=== PATIENT | female | born 1970 | race Caucasian/White ===

== ENCOUNTER 2017-01-26 15:58 | Emergency (ER) | payer MEDICAID ==
[2017-01-26 15:58] VITALS: BMI 27.3
[2017-01-26 16:11] VITALS: TEMP 98.4
[2017-01-26 16:14] VITALS: RESP 18; O2SAT 99
[2017-01-26] MEDS ORDERED: Tetanus Immune Globulin 250 Units Inj IM ONE (16:38)
[2017-01-26] MEDS ORDERED: TDAP Vaccine 0.5 mL Syr IM ONE (16:53)
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
[2017-01-26 18:01] VITALS: BP 134/79; PULSE 89
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
== END 2017-01-26 18:35 | disposition home or self-care (01) ==
LOC: ED 15:58
DX: S09.92XA Unspecified injury of nose, initial encounter (principal); Y04.0XXA Assault by unarmed brawl or fight, initial encounter; Z23 Encounter for immunization

== ENCOUNTER 2017-12-23 10:45 | Emergency (ER) | payer MEDICAID, OTHER ==
[2017-12-23] MEDS ORDERED: Sodium Chloride 0.9% 1,000 ML IV STA (11:15)
[2017-12-23 11:46] LABS: BASO # 0.03 K/mm3 (0.0-2.0); BASO % 0.4 % (0.0-3.0); EOS # 0.3 (0.0-0.7); EOS % 3.9 % (1.5-5.0); GRAN # 5.21 (1.4-6.5); GRAN % 63.4 % (50.0-68.0); HEMOGLOBIN 14.8 g/dL (12.0-16.0); LYMPH # 2.2 (1.2-3.4); LYMPH % 26.9 % (22.0-35.0); MEAN CELL VOLUME 87.5 fl (80.0-105.0); MEAN CORPUSCULAR HEMOGLOBIN 30.3 pg (25.0-35.0); MEAN CORPUSCULAR HGB CONC 34.6 g/dl (31.0-37.0); MEAN PLATELET VOLUME 9.2 fl (7.0-11.0); MONO # 0.4 (0.1-0.6); MONO % 5.4 % (1.0-6.0); RBC 4.89 10^6/uL (3.5-6.1); RED CELL DISTRIBUTION WIDTH 13.1 % (11.5-14.5); URINE BILIRUBIN NEGATIVE (NEGATIVE); URINE BLOOD NEGATIVE (NEGATIVE); URINE GLUCOSE (UA) NEGATIVE (NEGATIVE); URINE LEUKOCYTE ESTERASE NEGATIVE Leu/uL (NEGATIVE); URINE PROTEIN TRACE mg/dL (<30 mg/dL); URINE UROBILINOGEN 0.2 E.U./dL (<1 E.U./dL); WHITE BLOOD COUNT 8.2 10^3/ul (4.5-11.0)
[2017-12-23 11:49] LABS: URINE APPEARANCE CLEAR (CLEAR); URINE COLOR YELLOW (YELLOW)
[2017-12-23 11:55] LABS: URINE AMORPHOUS SEDIMENT FEW; URINE BACTERIA MANY (NEG); URINE RBC 0 - 2 /hpf (0-2)
[2017-12-23 11:57] LABS: ALB/GLOB RATIO 1.1 (1.1-1.8); ALBUMIN 4.5 g/dL (3.0-4.8); CALCIUM 9.2 mg/dL (8.4-10.5); GFR AFRICAN-AMERICAN > 60; GFR NON-AFRICAN AMERICAN > 60
[2017-12-23 12:02] LABS: ALT/SGPT 27 U/L (7-56); AST/SGOT 32 U/L (14-36); BLOOD UREA NITROGEN 14 mg/dL (7-21)
[2017-12-23 12:08] LABS: TROPONIN I < 0.01 ng/mL
[2017-12-23 12:16] LABS: INR 1.15 (0.93-1.08); PARTIAL THROMBOPLASTIN TIME 27.6 Seconds (25.1-36.5); PROTHROMBIN TIME 13.3 SECONDS (9.4-12.5)
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
[2017-12-23 13:41] VITALS: RESP 18
--- NOTE | 2017-12-23 14:27 | CT ---
PROCEDURE: CT HEAD WITHOUT CONTRAST. HISTORY: dizziness/blurry vision COMPARISON: None available. TECHNIQUE: Axial computed tomography images were obtained through the head/brain without intravenous contrast. Radiation dose: Total exam DLP = 891 mGy-cm. This CT exam was performed using one or more of the following dose reduction techniques: Automated exposure control, adjustment of the mA and/or kV according to patient size, and/or use of iterative reconstruction technique. FINDINGS: HEMORRHAGE: No intracranial hemorrhage. BRAIN: No mass effect or edema. No atrophy or chronic microvascular ischemic changes. VENTRICLES: Unremarkable. No hydrocephalus. CALVARIUM: Unremarkable. PARANASAL SINUSES: Unremarkable as visualized. No significant inflammatory changes. MASTOID AIR CELLS: Unremarkable as visualized. No inflammatory changes. OTHER FINDINGS: None. IMPRESSION: No acute intracranial findings
--- NOTE | 2017-12-23 14:49 | CARD ---
APPROVED REPORT EKG Measurement Heart [id number] <Conclusion> Normal sinus rhythm with sinus arrhythmia Normal ECG
[2017-12-23 15:37] VITALS: BP 139/85; PULSE 59; TEMP 97.7; O2SAT 100
== END 2017-12-23 15:04 | disposition home or self-care (01) ==
LOC: ED 10:45
DX: R42 Dizziness and giddiness (principal)
CPT/HCPCS: 70450; 80053; 81001; 82550; 83615; 83735; 84484; 85025; 85610; 85730; 93005; 99285; J7030

== ENCOUNTER 2018-07-02 00:21 | Observation (INO) | payer MEDICAID, OTHER ==
[2018-07-02 00:24] VITALS: BMI 25.4
--- NOTE | 2018-07-02 00:43 | ED PDOC ---
Arrival/HPI - General Chief Complaint: Syncope Time Seen by Provider: 07/02/18 00:39 Historian: Patient - History of Present Illness Narrative History of Present Illness (Text): 07/02/18 00:43 Caitlin Garces is a 47 year old female, whose past medical history includes asthma, who presents to the Emergency department complaining of syncope. As per relative, patient has been feeling unwell and today lost consciousness while in the bathroom for approximately 10 seconds. Relative states he caught the patient before she could hit the floor. Patient does not recall the event. Patient also reports she has been experiencing right ankle pain since yesterday, worse today. Patient denies any recent history of injury/trauma. Patient denies any fever, chills, chest pain, shortness of breath, nausea, vomiting, neck pain, headache, dizziness, head injury, or any other complaints. Symptom Onset: Gradual Symptom Course: Unchanged Activities at Onset: Light Context: Home Past Medical History - Provider Review Nursing Documentation Reviewed: Yes - Infectious Disease Hx of Infectious Diseases: None - Tetanus Immunization Tetanus Immunization: Unknown - Cardiac Hx Cardiac Disorders: Yes - Pulmonary Hx Asthma: Yes - Neurological Other/Comment: sudden onset of lower extremity paralyzed in 2010, unknown cause. - Psychiatric Hx Psychophysiologic Disorder: No Hx Depression: No Hx Substance Use: No - Surgical History Hx Section: Yes Hx Hysterectomy: Yes - Anesthesia Hx Anesthesia: Yes Hx Anesthesia Reactions: No Hx Malignant Hyperthermia: No - Suicidal Assessment Feels Threatened In Home Enviroment: No Family/Social History - Physician Review Nursing Documentation Reviewed: Yes Family/Social History: Unknown Family HX Smoking Status: Never Smoked Hx Alcohol Use: No Hx Substance Use: No Hx Substance Use Treatment: No Allergies/Home Meds Allergies/Adverse Reactions: Allergies No Known Allergies Allergy (Verified 12/23/17 11:22) Home Medications: Home Meds Medication Instructions Recorded Confirmed No Known Home Med 07/02/18 07/02/18 Review of Systems - Physician Review All systems were reviewed & negative as marked: Yes - Review of Systems Constitutional: Normal. absent: Fevers Eyes: Normal ENT: Normal Respiratory: Normal. absent: SOB, Cough Cardiovascular: Syncope Gastrointestinal: Normal. absent: Abdominal Pain, Diarrhea, Nausea, Vomiting Genitourinary Female: Normal. absent: Dysuria, Frequency, Hematuria, Urine Output Changes Musculoskeletal: Arthralgias (+right ankle pain). absent: Back Pain, Neck Pain Skin: Normal. absent: Rash Neurological: Normal. absent: Headache, Dizziness Endocrine: Normal Hemo/Lymphatic: Normal Psychiatric: Normal Physical Exam Vital Signs Reviewed: Yes Vital Signs Temp Pulse Resp BP Pulse Ox 07/02/18 00:23 98.3 F 73 18 151/92 H 99 Temperature: Afebrile Blood Pressure: Normal Pulse: Regular Respiratory Rate: Normal Appearance: Positive for: Well-Appearing, Non-Toxic, Comfortable Pain Distress: None Mental Status: Positive for: Alert and Oriented X 3 - Systems Exam Head: Present: Atraumatic, Normocephalic Pupils: Present: PERRL Extroacular Muscles: Present: EOMI Conjunctiva: Present: Normal Mouth: Present: Moist Mucous Membranes Neck: Present: Normal Range of Motion Respiratory/Chest: Present: Clear to Auscultation, Good Air Exchange. No: Respiratory Distress, Accessory Muscle Use Cardiovascular: Present: Regular Rate and Rhythm, Normal S1, S2. No: Murmurs Abdomen: No: Tenderness, Distention, Peritoneal Signs Back: Present: Normal Inspection Upper Extremity: Present: Normal Inspection. No: Cyanosis, Edema Lower Extremity: Present: Normal Inspection. No: Edema Neurological: Present: GCS=15, CN II-XII Intact, Speech Normal Skin: Present: Warm, Dry, Normal Color. No: Rashes Psychiatric: Present: Alert, Oriented x 3, Normal Insight, Normal Concentration Medical Decision Making ED Course and Treatment: 07/02/18 00:43 Impression: 47 year old female complaining of syncope and right ankle pain. Plan: -- CT Head w/o contrast -- EKG -- Chest X-ray -- Labs, cardiac enzymes -- XR Right Ankle -- US Duplex Lower Extremities -- Reassess and disposition Prior Visits: Notes and results from previous visits were reviewed. Patient was last seen in the emergency department on Progress Notes: Reviewed EKG, NSR at [address]-segment elevations or depressions, no T-wave inversions, normal intervals. 07/02/18 01:38 Chest X-ray reviewed, shows no acute processes. 07/02/18 01:42 CT Head: Normal size of the ventricles and extra-axial spaces for the patient's age. Normal white matter tracts of the supratentorial brain. Normal basal ganglia and thalami. Normal brainstem. Normal cerebellum. There is no demonstrated extra-axial, intraparenchymal, or intraventricular hemorrhage. There are no findings of an acute ischemic infarction. Normal calvarium. There is no demonstrated fracture. Normal soft tissue structures. Mild chronic mucosal inflammatory changes of the ethmoid air cells. Normal remaining visualized paranasal sinuses. IMPRESSION: Normal unenhanced CT scan of the brain. Electronically signed on Jul 02, 2018 1:31:00 AM EST by: Ean Sheth M.D., Certified by ABR, MSK, Neuroradiology 07/02/18 03:[address] Burnett, who is aware and agrees with plan. Accepts pt in to his service. Pt will go to remote telemetry observation for syncope. - Lab Interpretations I have reviewed the lab results: Yes - RAD Interpretation Filler Shredder Helper: ED Physician, Radiologist - EKG Interpretation Interpreted by ED Physician: Yes Type: 12 lead EKG - Scribe Statement The provider has reviewed the documentation as recorded by the Scribe Ana Perez Provider Scribe Attestation: All medical record entries made by the Scribe were at my direction and personally dictated by me. I have reviewed the chart and agree that the record accurately reflects my personal performance of the history, physical exam, medical decision making, and the department course for this patient. I have also personally directed, reviewed, and agree with the discharge instructions and disposition. Disposition/Present on Arrival - Present on Arrival Any Indicators Present on Arrival: No History of DVT/PE: No History of Uncontrolled Diabetes: No Urinary Catheter: No History of Decub. Ulcer: No History Surgical Site Infection Following: None - Disposition Have Diagnosis and Disposition been Completed?: Yes Diagnosis: Syncope Disposition: HOSPITALIZED Disposition Time: 03:11 Patient Plan: Observation Condition: STABLE Discharge Instructions (ExitCare): Syncope (ED) Referrals: Alyssa Jeffrey DO [Primary Care Provider] - Follow up with primary Forms: [email or web address] (Niuean)
[2018-07-02 02:05] LABS: HEMOGLOBIN 13.3 g/dL (12.0-16.0); MEAN CELL VOLUME 87.6 fl (80.0-105.0); MEAN CORPUSCULAR HEMOGLOBIN 29.9 pg (25.0-35.0); MEAN CORPUSCULAR HGB CONC 34.1 g/dl (31.0-37.0); MEAN PLATELET VOLUME 9.1 fl (7.0-11.0); RBC 4.45 10^6/uL (3.5-6.1); RED CELL DISTRIBUTION WIDTH 12.9 % (11.5-14.5); WHITE BLOOD COUNT 11.8 10^3/uL (4.5-11.0)
[2018-07-02 02:14] LABS: ALBUMIN 4.1 g/dL (3.0-4.8); ALT/SGPT 18 U/L (7-56); AST/SGOT 28 U/L (14-36); BLOOD UREA NITROGEN 15 mg/dL (7-21); CALCIUM 9.1 mg/dL (8.4-10.5); GFR NON-AFRICAN AMERICAN > 60
[2018-07-02 02:16] LABS: PARTIAL THROMBOPLASTIN TIME 28.2 Seconds (25.1-36.5); PROTHROMBIN TIME 11.4 SECONDS (9.4-12.5)
[2018-07-02 02:25] LABS: TROPONIN I < 0.01 ng/mL
--- NOTE | 2018-07-02 06:43 | CP.PCM.HP ---
<Moy Varma - Last Filed: 07/02/18 15:34> History of Present Illness - History of Present Illness History of Present Illness: H&P for Dr. 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 Pt reports went to bathroom to urinate, after standing up, became dizzy and felt flushed, splashed some water on her face without relief, and then awoke on the floor, family calling her name, unsure of how she got there. Patient reports that family reported catching her on the way down, and that they reported no head trauma, but she has no recall of this. Denies any similar episode in the past. Reports previous acute onset of LE paralysis (> 5 years ago), etiology unknown, since resolved, at one time requiring her to walk with a walker. She reports ambulating without aid in last few years. Reports last menstrual period was > 3 yrs ago, no breakthrough bleeding since. Does also complain of sore/painful right ankle, separate from her syncopal episode; she reports longstanding right ankle pain, but is able to ambulate on it. Denies vision changes, loss of vision, or room-spinning, nausea, emesis Workup in the ED was notable for Head CT negative for acute intracranial process and EKG that was NSR at 78 bpm with normal intervals. Labwork only notable for mild leukocytosis of 11.8 and mildly elevated alk phos, but afebrile otherwise. XRay of the ankle was negative for fracture/dislocation, and Duplex was negative for DVT. 12-system ROS reviewed and negative except as above. PMH: as above PSH: , hysterectomy Fam Hx: Father - prostate Ca, Mother - DM Soc Hx: Denies tobacco, illicits, IVDA, admits to social EtOH but denies any binging episodes PMD: Dr. Jeffrey Present on Admission - Present on Admission Any Indicators Present on Admission: No History of DVT/PE: No History of Uncontrolled Diabetes: No Review of Systems - Review of Systems All systems: reviewed and no additional remarkable complaints except Past Patient History - Infectious Disease Hx of Infectious Diseases: None - Tetanus Immunizations Tetanus Immunization: Unknown - Past Social History Smoking Status: Never Smoked - CARDIAC Hx Cardiac Disorders: Yes - PULMONARY Hx Asthma: Yes - NEUROLOGICAL Other/Comment: sudden onset of lower extremity paralyzed in 2010, unknown cause. - PSYCHIATRIC Hx Psychophysiologic Disorder: No Hx Depression: No Hx Substance Use: No - SURGICAL HISTORY Hx Section: Yes Hx Hysterectomy: Yes - ANESTHESIA Hx Anesthesia: Yes Hx Anesthesia Reactions: No Hx Malignant Hyperthermia: No Meds Allergies/Adverse Reactions: Allergies Allergy/AdvReac Type Severity Reaction Status Date / Time No Known Allergies Allergy Verified 07/02/18 12:05 Physical Exam - Constitutional Appears: Well, Non-toxic, No Acute Distress - Head Exam Head Exam: ATRAUMATIC, NORMAL INSPECTION, NORMOCEPHALIC - Eye Exam Eye Exam: EOMI (dizziness elicited with EOMI testing), Normal appearance. absent: Conjunctival injection, Scleral icterus Pupil Exam: absent: Irregular, Unequal - ENT Exam ENT Exam: Mucous Membranes Moist, Normal Exam - Neck Exam Neck exam: Positive for: Full Rom, Normal Inspection - Respiratory Exam Respiratory Exam: Clear to Auscultation Bilateral, NORMAL BREATHING PATTERN. absent: Accessory Muscle Use, Chest Wall Tenderness, Decreased Breath Sounds, Rales, Rhonchi, Wheezes - Cardiovascular Exam Cardiovascular Exam: REGULAR RHYTHM, RRR, +S1, +S2. absent: Bradycardia, Tachyc ardia, Irregular Rhythm, JVD, +S4 - GI/Abdominal Exam GI & Abdominal Exam: Normal Bowel Sounds, Soft. absent: Diminished Bowel Sounds, Distended, Firm, Hyperactive Bowel Sounds, Hypoactive Bowel Sounds, Rigid, Tenderness - Extremities Exam Extremities exam: Positive for: normal capillary refill, normal inspection, tenderness (tenderness to palpation of right ankle, but full ROM and no palpable deformity), pedal pulses present. Negative for: calf tenderness, pedal edema - Back Exam Back exam: absent: CVA tenderness (L), CVA tenderness (R) - Neurological Exam Additional comments: awake and alert, following all commands appropriately, moving all extremities spontaneously Dizziness elicited with EOMI testing, but not with head positioning - Psychiatric Exam Psychiatric exam: Normal Affect, Normal Mood - Skin Skin Exam: Dry, Intact, Normal Color, Warm Results - Vital Signs Recent Vital Signs: Last Vital Signs Temp 98.3 F 07/02/18 00:23 Pulse 78 12/12/18 06:34 Resp 18 07/02/18 06:34 BP 125/90 07/02/18 06:34 Pulse Ox 100 07/02/18 06:34 - Labs Result Diagrams: 07/02/18 01:15 07/02/18 01:15 Labs: Laboratory Results - last 24 hr 07/02/18 07/02/18 07/02/18 01:15 01:15 01:15 WBC 11.8 H RBC 4.45 Hgb 13.3 Hct 39.0 MCV 87.6 MCH 29.9 MCHC 34.1 RDW 12.9 Plt Count 299 MPV 9.1 PT 11.4 INR 1.00 APTT 28.2 Sodium 138 Potassium 3.8 Chloride 106 Carbon Dioxide 24 Anion Gap 12 BUN 15 Creatinine 0.7 Est GFR ( Amer) > 60 Est GFR (Non-Af Amer) > 60 Random Glucose 103 Calcium 9.1 Total Bilirubin 0.2 AST 28 ALT 18 Alkaline Phosphatase 139 H Lactate Dehydrogenase 511 Total Creatine Kinase 204 Troponin I < 0.01 Total Protein 8.1 Albumin 4.1 Globulin 4.0 Albumin/Globulin Ratio 1.0 L Assessment & Plan - Assessment and Plan (Free Text) Assessment: 1) Syncopal episode - ddx orthostatic hypotension vs vasovagal hypotension, r/o ACS and stroke 2) R ankle pain 3) Hx asthma 4) Dizziness with standing and EOMI testing Plan: -Head CT negative for stroke, EKG negative for arrhythmia, Cardio and Neuro consulted, appreciate all recs -Trop x1 negative, trending 2 more q8h -TSH and Lipid panel ordered, f/u -Reports asthma controlled with PRN nebulizer and/or Ventolin at home, will order Q6 prn nebulized albuterol for shortness of breath while inpatient -Orthostatic BPs ordered given symptoms presenting after standing up -Dizziness with EOMI and standing, not elicited with passive head movements, so less likely BPPV -Awake and alert with no appreciable focal deficit and negative head CT, so can be started on heart-healthy diet -PT to eval for fall, appreciate their recs Reviewed and discussed with attending, Dr. Burnett <Williams Burnett S - Last Filed: 07/04/18 20:04> Results - Vital Signs Recent Vital Signs: Last Vital Signs Temp 98.6 F 07/02/18 18:00 Pulse 68 07/02/18 18:00 Resp 18 07/02/18 18:00 BP 128/88 07/02/18 18:00 Pulse Ox 100 07/02/18 16:16 - Labs Result Diagrams: 07/03/18 06:05 07/03/18 06:05 Labs: Laboratory Results - last 24 hr 07/02/18 07/02/18 07/02/18 01:15 01:15 01:15 WBC 11.8 H RBC 4.45 Hgb 13.3 Hct 39.0 MCV 87.6 MCH 29.9 MCHC 34.1 RDW 12.9 Plt Count 299 MPV 9.1 PT 11.4 INR 1.00 APTT 28.2 Sodium 138 Potassium 3.8 Chloride 106 Carbon Dioxide 24 Anion Gap 12 BUN 15 Creatinine 0.7 Est GFR ( Amer) > 60 Est GFR (Non-Af Amer) > 60 Random Glucose 103 Calcium 9.1 Total Bilirubin 0.2 AST 28 ALT 18 Alkaline Phosphatase 139 H Lactate Dehydrogenase 511 Total Creatine Kinase 204 Troponin I < 0.01 Total Protein 8.1 Albumin 4.1 Globulin 4.0 Albumin/Globulin Ratio 1.0 L 07/02/18 16:52 WBC RBC Hgb Hct MCV MCH MCHC RDW Plt Count MPV PT INR APTT Sodium Potassium Chloride Carbon Dioxide Anion Gap BUN Creatinine Est GFR ( Amer) Est GFR (Non-Af Amer) Random Glucose Calcium Total Bilirubin AST ALT Alkaline Phosphatase Lactate Dehydrogenase Total Creatine Kinase Troponin I < 0.01 Total Protein Albumin Globulin Albumin/Globulin Ratio Assessment & Plan - Assessment and Plan (Free Text) Plan: The patient was seen and examined by me. This is a late entry. I reviewed the note of the ophthalmic medical technologist and agree with the assessment and plan. I have reviewed the medications and the last labs. Pt had a syncopal episode and most likely is vasovagal.
--- NOTE | 2018-07-02 08:56 | RAD ---
Date of service: 07/02/2018 PROCEDURE: CHEST RADIOGRAPH, 1 VIEW HISTORY: syncope COMPARISON: 09/05/2016 FINDINGS: LUNGS: The lungs are well inflated and clear. PLEURA: No pneumothorax or pleural effusion. CARDIOVASCULAR: The heart is normal in size. No aortic atherosclerotic calcifications present. OSSEOUS STRUCTURES: Within normal limits for the patient's age. VISUALIZED UPPER ABDOMEN: Normal. OTHER FINDINGS: None. IMPRESSION: No active pulmonary disease.
--- NOTE | 2018-07-02 10:21 | RAD ---
Date of service: 07/02/2018 PROCEDURE: Right Ankle Radiographs. HISTORY: pain COMPARISON: None available. FINDINGS: BONES: Bone alignment and mineralization are normal. There is no acute displaced fracture or bone destruction. There is a small plantar calcaneal spur. JOINTS: Normal. No osteoarthritis. Ankle mortise maintained. Talar dome intact SOFT TISSUES: Normal. OTHER FINDINGS: None. IMPRESSION: No acute fracture or dislocation.
--- NOTE | 2018-07-02 10:40 | CT ---
Date of service: 07/02/2018 PROCEDURE: CT HEAD WITHOUT CONTRAST. HISTORY: syncope COMPARISON: None available. TECHNIQUE: Axial computed tomography images were obtained through the head/brain without intravenous contrast. Radiation dose: Total exam DLP = 784.95 mGy-cm. This CT exam was performed using one or more of the following dose reduction techniques: Automated exposure control, adjustment of the mA and/or kV according to patient size, and/or use of iterative reconstruction technique. FINDINGS: HEMORRHAGE: No intracranial hemorrhage. BRAIN: No mass effect or edema. No atrophy or chronic microvascular ischemic changes. VENTRICLES: Unremarkable. No hydrocephalus. CALVARIUM: Unremarkable. PARANASAL SINUSES: Unremarkable as visualized. No significant inflammatory changes. MASTOID AIR CELLS: Unremarkable as visualized. No inflammatory changes. OTHER FINDINGS: None. IMPRESSION: Normal CT of the Head.
[2018-07-02] MEDS: Pantoprazole 40 mg EC Tab PO SCH (13:26)
--- NOTE | 2018-07-02 14:16 | US ---
PROCEDURE: Right lower extremity venous US HISTORY: Leg pain and swelling. Evaluate for DVT. PHYSICIAN(S): Smith Fontanez M.D. TECHNIQUE: Duplex sonography and color-flow Doppler with graded compression were used to evaluate the deep venous system of the right lower extremity. FINDINGS: The visualized deep venous system of the right lower extremity is sonographically normal and compressible. Normal waveforms and augmentation are seen. There is no sonographic evidence for deep venous thrombosis in the visualized segments of the right lower extremity. IMPRESSION: 1. No sonographic evidence for deep venous thrombosis in the visualized segments of the right lower extremity.
[2018-07-02] MEDS ORDERED: Albuterol 0.083% Inhal Sol (2.5 mg/3 mL) UD INH PRN (15:33)
--- NOTE | 2018-07-02 16:54 | CP.PCM.PCO ---
Physician Communication Note - Physician Communication Note Physician Communication Note: syncope sec to vasovagal. carotid pend/orthstatics/hydration.
[2018-07-02] MEDS: Naproxen 550 mg Tab PO SCH (17:16)
[2018-07-02] MEDS ORDERED: Pneumococcal 23-Valent Vaccine IM ONE (17:17)
[2018-07-02] MEDS ORDERED: Influenza Vaccine 60 mcg/0.5 mL SYR (4YR UP) IM ONE (17:17)
--- NOTE | 2018-07-02 17:28 | US ---
PROCEDURE: Carotid artery duplex ultrasound HISTORY: Carotid stenosis syncope PHYSICIAN(S): Smith Fontanez MD. TECHNIQUE: Duplex sonography and color-flow Doppler were used to evaluate the carotid bifurcations and limited segments of the vertebral arteries bilaterally. FINDINGS: There is mild smooth hypoechoic plaque noted at the carotid bifurcations bilaterally. The peak systolic velocity in the proximal right internal carotid artery is 98 cm/sec. This corresponds to a 20 to 39% proximal right ICA stenosis. Normal systolic velocities are noted in the proximal right external carotid artery. There is antegrade flow in the right vertebral artery. The peak systolic velocity in the proximal left internal carotid artery is 96 cm/sec. This corresponds to a 20 to 39% proximal left ICA stenosis. Normal systolic velocities are noted in the proximal left external carotid artery. There is antegrade flow in the left vertebral artery. IMPRESSION: 1. Bilateral 20-39% proximal ICA stenoses. 2. Antegrade flow in both vertebral arteries.
--- NOTE | 2018-07-02 19:18 | CON ---
DATE: 07/02/2018 HISTORY OF PRESENT ILLNESS: This is a 47-year-old black female with past medical history of asthma, came to the emergency room with the episode of syncopal episode and lost consciousness while she was in the bathroom for few seconds and did not hit her head. No numbness or tingling in the arms or legs. No neck pain, back pain on examination. PAST MEDICAL HISTORY: As above asthma. ALLERGIES: NO KNOWN DRUG ALLERGY. PHYSICAL EXAMINATION VITAL SIGNS: Blood pressure 150/92. HEENT: Normocephalic, atraumatic. NECK: Supple. NEUROLOGICAL: Alert, awake, oriented x3. No . Cranial nerves II through XII were tested. Pupils equal and reactive to light. EOM intact. Visual tang full. No facial asymmetry. Tongue midline. Motor examination: Moves all extremities equally. Tone normal. Deep tendon reflexes 1+. Both plantars are downgoing. Sensory appears intact. Cerebellar gait deferred. IMPRESSION: Syncope, less likely seizure. CAT scan of the head was normal. Workup in progress. PLAN: Continue present management. We will follow up. Lloyd Dickey MD
--- NOTE | 2018-07-02 20:39 | CARD ---
APPROVED REPORT Date of service: 07/02/2018 EKG Measurement Heart [id number] <Conclusion> Normal sinus rhythm Normal ECG
--- NOTE | 2018-07-02 22:25 | CON ---
DATE: 07/02/2018 The patient in emergency room, bed #3. REASON FOR CONSULTATION: Syncope. HISTORY OF PRESENT ILLNESS: The patient is a 47-year-old female, known case of asthma, takes hand nebulizer therapy at home. She states that for last two days, she is having pain in right lower leg, mostly in the front and ankle area. She went to bathroom, she got off the commode and stood up, and she felt sudden pain in the leg, and after that she felt dizzy and then she fell down. The patient denies any chest pain, palpitation, shortness of breath associated with that episode. Denies any nausea or vomiting. Denies any tongue bite. Denies any incontinence of urine during that episode. PAST HISTORY: Positive for asthma. She says that she was also checked for dizziness in the past. PERSONAL HISTORY: Denies smoking, denies drinking. FAMILY HISTORY: Positive for high blood pressure. MEDICATIONS AT HOME: She takes hand nebulizer therapy at home. REVIEW OF SYSTEMS: All the systems reviewed, positive mentioned in the history. There is no history of any exertional chest pain or any cardiac problem in the past. PHYSICAL EXAMINATION: VITAL SIGNS: Blood pressure 127/69, respirations 18, pulse 69, the patient is febrile. HEENT: Head is normocephalic. Eyes, pupils normal. Conjunctivae normal. Nose and throat normal. NECK: JVP low. Carotid equal. THORAX: AP diameter normal. LUNGS: Clear. CARDIOVASCULAR: S1, S2. ABDOMEN: Soft. No tenderness. No organomegaly. Bowel sounds normal. EXTREMITIES: No clubbing. No cyanosis. The patient shows some tenderness in anterior right lower leg and ankle area. LABORATORY DATA: WBC 11.8, hemoglobin 13.3, hematocrit 39, platelets 299. Sodium 138, potassium 3.8, BUN 15, creatinine 0.7. Troponin less than 0.01. Total protein, albumin and globulin normal. Random glucose 103, calcium 9.1. AST and ALT normal. Alkaline phosphatase 139. EKG showed sinus rhythm. Chest x-ray, no active pulmonary disease. Head CT, normal CAT scan of the head. Extremity, venous Doppler done, report is pending. DIAGNOSES: Most likely vasovagal syncope, history of asthma. PLAN: We will continue to monitor the patient for arrhythmia and we will do echo Doppler. When the patient's leg pain is resolved, at that time we can do a nuclear stress test. We will check TSH and lipid profile also. We will add Naprosyn therapy with Protonix to help the leg pain and we will follow the venous Doppler ultrasound report. We will follow with you. Park Spann MD
[2018-07-03 06:35] LABS: BASO # 0.02 K/mm3 (0.0-2.0); BASO % 0.2 % (0.0-3.0); EOS # 0.6 (0.0-0.7); EOS % 5.5 % (1.5-5.0); GRAN # 7.25 (1.4-6.5); HEMOGLOBIN 12.6 g/dL (12.0-16.0); LYMPH # 3.1 (1.2-3.4); LYMPH % 26.7 % (22.0-35.0); MEAN CELL VOLUME 88.2 fl (80.0-105.0); MEAN CORPUSCULAR HEMOGLOBIN 29.1 pg (25.0-35.0); MEAN PLATELET VOLUME 9.2 fl (7.0-11.0); MONO # 0.7 (0.1-0.6); MONO % 5.6 % (1.0-6.0); RBC 4.33 10^6/uL (3.5-6.1); WHITE BLOOD COUNT 11.7 10^3/uL (4.5-11.0)
[2018-07-03 07:01] LABS: ALBUMIN 3.6 g/dL (3.0-4.8); ALT/SGPT 17 U/L (7-56); AST/SGOT 29 U/L (14-36); BLOOD UREA NITROGEN 14 mg/dL (7-21); CALCIUM 8.9 mg/dL (8.4-10.5); GFR NON-AFRICAN AMERICAN > 60; HDL CHOLESTEROL 50 mg/dL (29-60)
[2018-07-03 07:12] LABS: LDL CHOLESTEROL 102 mg/dL (0-129)
[2018-07-03 07:30] VITALS: O2SAT 98
--- NOTE | 2018-07-03 09:45 | CP.PCM.DIS ---
<Moy Varma - Last Filed: 07/03/18 17:26> Provider - Provider Date of Admission: 07/02/18 03:08 Attending physician: Williams Burnett MD Primary care physician: Alyssa Jeffrey DO Consults: 07/02/18 06:20 Consult [Physician Consult] Routine Comment: Consulting Provider: Park Hammer Consulting Physician: Park Hammer Reason for Consult: syncope 07/02/18 08:29 Consult [Physician Consult] Routine Comment: Consulting Provider: Leroy Dickey Consulting Physician: Leroy Dickey Reason for Consult: syncope Time Spent in preparation of Discharge (in minutes): 35 Diagnosis - Discharge Diagnosis (1) Vasovagal syncope Status: Acute Priority: High (2) Chronic pain of right ankle Status: Chronic Priority: Low (3) Asthma Status: Chronic Priority: Medium Hospital Course - Lab Results Lab Results: Most Recent Lab Values WBC 11.7 10^3/uL (4.5-11.0) H 07/03/18 06:05 RBC 4.33 10^6/uL (3.5-6.1) 07/03/18 06:05 Hgb 12.6 g/dL (12.0-16.0) 07/03/18 06:05 Hct 38.2 % (36.0-48.0) 07/03/18 06:05 MCV 88.2 fl (80.0-105.0) 07/03/18 06:05 MCH 29.1 pg (25.0-35.0) 07/03/18 06:05 MCHC 33.0 g/dl (31.0-37.0) 07/03/18 06:05 RDW 13.0 % (11.5-14.5) 07/03/18 06:05 Plt Count 294 10^3/uL (120.0-450.0) 07/03/18 06:05 MPV 9.2 fl (7.0-11.0) 07/03/18 06:05 Gran % 62.0 % (50.0-68.0) 07/03/18 06:05 Lymph % (Auto) 26.7 % (22.0-35.0) 07/03/18 06:05 [place] % (Auto) 5.6 % (1.0-6.0) 07/03/18 06:05 Eos % (Auto) 5.5 % (1.5-5.0) H 07/03/18 06:05 Baso % (Auto) 0.2 % (0.0-3.0) 07/03/18 06:05 Gran # 7.25 (1.4-6.5) H 07/03/18 06:05 Lymph # (Auto) 3.1 (1.2-3.4) 07/03/18 06:05 [place] # (Auto) 0.7 (0.1-0.6) H 07/03/18 06:05 Eos # (Auto) 0.6 (0.0-0.7) 07/03/18 06:05 Baso # (Auto) 0.02 K/mm3 (0.0-2.0) 07/03/18 06:05 PT 11.4 SECONDS (9.4-12.5) 07/02/18 01:15 INR 1.00 07/02/18 01:15 APTT 28.2 Seconds (25.1-36.5) 07/02/18 01:15 Sodium 139 mmol/L (132-148) 07/03/18 06:05 Potassium 4.0 mmol/L (3.6-5.0) 07/03/18 06:05 Chloride 108 mmol/L (98-107) H 07/03/18 06:05 Carbon Dioxide 26 mmol/L (21-33) 07/03/18 06:05 Anion Gap 9 (10-20) L 07/03/18 06:05 BUN 14 mg/dL (7-21) 07/03/18 06:05 Creatinine 0.6 mg/dl (0.7-1.2) L 07/03/18 06:05 Est GFR ( Amer) > 60 07/03/18 06:05 Est GFR (Non-Af Amer) > 60 07/03/18 06:05 Random Glucose 90 mg/dL (70-110) 07/03/18 06:05 Calcium 8.9 mg/dL (8.4-10.5) 07/03/18 06:05 Phosphorus 4.6 mg/dL (2.5-4.5) H 07/03/18 06:05 Magnesium 2.0 mg/dL (1.7-2.2) 07/03/18 06:05 Total Bilirubin 0.2 mg/dL (0.2-1.3) 07/03/18 06:05 AST 29 U/L (14-36) 07/03/18 06:05 ALT 17 U/L (7-56) 07/03/18 06:05 Alkaline Phosphatase 115 U/L (38-126) 07/03/18 06:05 Lactate Dehydrogenase 511 U/L (333-699) 07/02/18 01:15 Total Creatine Kinase 204 U/L (35-230) 07/02/18 01:15 Troponin I < 0.01 ng/mL 07/02/18 23:25 Total Protein 7.2 g/dL (5.8-8.3) 07/03/18 06:05 Albumin 3.6 g/dL (3.0-4.8) 07/03/18 06:05 Globulin 3.6 gm/dL 07/03/18 06:05 Albumin/Globulin Ratio 1.0 (1.1-1.8) L 07/03/18 06:05 Triglycerides 145 mg/dL (35-160) 07/03/18 06:05 Cholesterol 180 mg/dL (130-200) 07/03/18 06:05 LDL Cholesterol Direct 102 mg/dL (0-129) 07/03/18 06:05 HDL Cholesterol 50 mg/dL (29-60) 07/03/18 06:05 TSH 3rd Generation 0.76 mIU/mL (0.46-4.68) 07/03/18 06:05 - Hospital Course Hospital Course: This is a 47 yo F with PMH of Asthma (well controlled on PRN nebulizer and rescue inhaler) and reported hx of bilateral LE paralysis of unclear etiology since resolved who presented to [facility] s/p syncopal event at home. Pt reports went to bathroom to urinate, after standing up, became dizzy and felt flushed, splashed some water on her face without relief, and then awoke on the floor, family calling her name, unsure of how she got there. While here, she was also seen by Cardio and Neuro. As per Neuro, likely vasovagal syncope, orthostatics obtained and ruled out orthostatic hypotension, encourage hydration. As per Cardio, once right ankle pain is resolved, she should schedule as outpatient to undergo exercise stress test for further evaluation. Patient was also seen by PT, who recommended outpatient PT given how pt limps 2/2 right ankle pain, which she reports is longstanding (imaging of R ankle unremarkable). Patient was instructed to resume her home medications as previously prescribed, to follow up with her PMD (Dr. Jeffrey) within 1 week, and with Cardio (Dr. Spann) within 2-3 weeks. She was also instructed to present to the nearest emergency department if she experienced worsening or newly concerning symptoms. She expressed understanding and agreement. Patient was then discharged to home. Reviewed and discussed with attending, Dr. Venegas. Discharge Exam - Head Exam Head Exam: ATRAUMATIC, NORMAL INSPECTION, NORMOCEPHALIC - Additional Findings Additional findings: - Constitutional Appears: Well, Non-toxic, No Acute Distress - Head Exam Head Exam: ATRAUMATIC, NORMAL INSPECTION, NORMOCEPHALIC - Eye Exam Eye Exam: EOMI, Normal appearance. absent: Conjunctival injection, Scleral icterus Pupil Exam: absent: Irregular, Unequal - ENT Exam ENT Exam: Mucous Membranes Moist, Normal Exam - Neck Exam Neck exam: Positive for: Full Rom, Normal Inspection - Respiratory Exam Respiratory Exam: Clear to Auscultation Bilateral, NORMAL BREATHING PATTERN. absent: Accessory Muscle Use, Chest Wall Tenderness, Decreased Breath Sounds, Rales, Rhonchi, Wheezes - Cardiovascular Exam Cardiovascular Exam: REGULAR RHYTHM, RRR, +S1, +S2. absent: Bradycardia, Tachycardia, Irregular Rhythm, JVD, +S4 - GI/Abdominal Exam GI & Abdominal Exam: Normal Bowel Sounds, Soft. absent: Diminished Bowel Sounds, Distended, Firm, Hyperactive Bowel Sounds, Hypoactive Bowel Sounds, Rigid, Tenderness - Extremities Exam Extremities exam: Positive for: normal capillary refill, normal inspection, tenderness (tenderness to palpation of right ankle, but full ROM and no palpable deformity), pedal pulses present. Negative for: calf tenderness, pedal edema - Back Exam Back exam: absent: CVA tenderness (L), CVA tenderness (R) - Neurological Exam awake and alert, following all commands appropriately, moving all extremities spontaneously No dizziness elicited with head movement or EOMI testing today - Psychiatric Exam Psychiatric exam: Normal Affect, Normal Mood - Skin Skin Exam: Dry, Intact, Normal Color, Warm Discharge Plan - Follow Up Plan Condition: STABLE Disposition: HOME/ ROUTINE Instructions: Syncope (Fainting) (DC), Vasovagal Response (DC) Additional Instructions: You were seen in the hospital for your fainting episode. Workup in the hospital indicates it is not an acute problem with your heart or with your brain. Please resume all home medications as previously prescribed. Please follow up with your PMD (Dr. Jeffrey) within 1 week. Please make an appointment with the Manufacturing Assembler, Dr. Spann, in 2-3 weeks to undergo a stress test to further evaluate your heart. You have been given a prescription for outpatient physical therapy for your right ankle pain, please call a site of your preference (a list of nearby sites has been provided to you) and schedule outpatient PT with them. Please present to the nearest emergency department if you experience worsening or new concerning symptoms. Nursing See care notes provided for additional instructions Referrals: Alyssa Jeffrey DO [Primary Care Provider] - Park Spann MD [Staff Provider] - <Williams Burnett - Last Filed: 07/03/18 22:26> Provider - Provider Date of Admission: 07/02/18 03:08 Attending physician: Williams Burnett MD Primary care physician: Alyssa Jeffrey DO Consults: 07/02/18 06:20 Consult [Physician Consult] Routine Comment: Consulting Provider: Park Hammer Consulting Physician: Park Hammer Reason for Consult: syncope 07/02/18 08:29 Consult [Physician Consult] Routine Comment: Consulting Provider: Leroy Dickey Consulting Physician: Leroy Dickey Reason for Consult: syncope Hospital Course - Lab Results Lab Results: Most Recent Lab Values WBC 11.7 10^3/uL (4.5-11.0) H 07/03/18 06:05 RBC 4.33 10^6/uL (3.5-6.1) 07/03/18 06:05 Hgb 12.6 g/dL (12.0-16.0) 07/03/18 06:05 Hct 38.2 % (36.0-48.0) 07/03/18 06:05 MCV 88.2 fl (80.0-105.0) 07/03/18 06:05 MCH 29.1 pg (25.0-35.0) 07/03/18 06:05 MCHC 33.0 g/dl (31.0-37.0) 07/03/18 06:05 RDW 13.0 % (11.5-14.5) 07/03/18 06:05 Plt Count 294 10^3/uL (120.0-450.0) 07/03/18 06:05 MPV 9.2 fl (7.0-11.0) 07/03/18 06:05 Gran % 62.0 % (50.0-68.0) 07/03/18 06:05 Lymph % (Auto) 26.7 % (22.0-35.0) 07/03/18 06:05 [place] % (Auto) 5.6 % (1.0-6.0) 07/03/18 06:05 Eos % (Auto) 5.5 % (1.5-5.0) H 07/03/18 06:05 Baso % (Auto) 0.2 % (0.0-3.0) 07/03/18 06:05 Gran # 7.25 (1.4-6.5) H 07/03/18 06:05 Lymph # (Auto) 3.1 (1.2-3.4) 07/03/18 06:05 [place] # (Auto) 0.7 (0.1-0.6) H 07/03/18 06:05 Eos # (Auto) 0.6 (0.0-0.7) 07/03/18 06:05 Baso # (Auto) 0.02 K/mm3 (0.0-2.0) 07/03/18 06:05 PT 11.4 SECONDS (9.4-12.5) 07/02/18 01:15 INR 1.00 07/02/18 01:15 APTT 28.2 Seconds (25.1-36.5) 07/02/18 01:15 Sodium 139 mmol/L (132-148) 07/03/18 06:05 Potassium 4.0 mmol/L (3.6-5.0) 07/03/18 06:05 Chloride 108 mmol/L (98-107) H 07/03/18 06:05 Carbon Dioxide 26 mmol/L (21-33) 07/03/18 06:05 Anion Gap 9 (10-20) L 07/03/18 06:05 BUN 14 mg/dL (7-21) 07/03/18 06:05 Creatinine 0.6 mg/dl (0.7-1.2) L 07/03/18 06:05 Est GFR ( Amer) > 60 07/03/18 06:05 Est GFR (Non-Af Amer) > 60 07/03/18 06:05 Random Glucose 90 mg/dL (70-110) 07/03/18 06:05 Calcium 8.9 mg/dL (8.4-10.5) 07/03/18 06:05 Phosphorus 4.6 mg/dL (2.5-4.5) H 07/03/18 06:05 Magnesium 2.0 mg/dL (1.7-2.2) 07/03/18 06:05 Total Bilirubin 0.2 mg/dL (0.2-1.3) 07/03/18 06:05 AST 29 U/L (14-36) 07/03/18 06:05 ALT 17 U/L (7-56) 07/03/18 06:05 Alkaline Phosphatase 115 U/L (38-126) 07/03/18 06:05 Lactate Dehydrogenase 511 U/L (333-699) 07/02/18 01:15 Total Creatine Kinase 204 U/L (35-230) 07/02/18 01:15 Troponin I < 0.01 ng/mL 07/02/18 23:25 Total Protein 7.2 g/dL (5.8-8.3) 07/03/18 06:05 Albumin 3.6 g/dL (3.0-4.8) 07/03/18 06:05 Globulin 3.6 gm/dL 07/03/18 06:05 Albumin/Globulin Ratio 1.0 (1.1-1.8) L 07/03/18 06:05 Triglycerides 145 mg/dL (35-160) 07/03/18 06:05 Cholesterol 180 mg/dL (130-200) 07/03/18 06:05 LDL Cholesterol Direct 102 mg/dL (0-129) 07/03/18 06:05 HDL Cholesterol 50 mg/dL (29-60) 07/03/18 06:05 TSH 3rd Generation 0.76 mIU/mL (0.46-4.68) 07/03/18 06:05 - Hospital Course Hospital Course: The patient was seen and examined by me. I reviewed the note of the medical coordinator pesticide use and agree with the assessment and plan. I have reviewed the medications and the last labs. Pt with dizziness and syncope. She was evaluated by Neuro and no specific etiology was found. She was seen by PT and cardilogy. She will be discharged home and f/u with PMD. She may have had a vasovagal episode. Asthma has been stable.
--- NOTE | 2018-07-03 09:53 | CP.PCM.PN ---
Subjective - Date & Time of Evaluation Date of Evaluation: 07/03/18 Time of Evaluation: 06:05 - Subjective Subjective: Awake,alert, denies chest pain, denies dizziness Reason for consultation and follow up: Cardiac evaluation of syncope, history of asthma Seen and examined by me and Dr. Spann Objective - Vital Signs/Intake and Output Vital Signs (last 24 hours): Temp Pulse Resp BP Pulse Ox 97.8 F 74 20 97/52 L 98 07/03/18 06:00 07/03/18 06:00 07/03/18 06:00 07/03/18 06:00 07/03/18 06:00 Intake and Output: 07/03/18 07/03/18 06:59 18:59 Intake Total 2 Output Total 2 Balance 0 - Medications Medications: Current Medications Albuterol Sulfate (Albuterol 0.083% Inhal [place] (2.5 Mg/3 Ml) Ud) 2.5 mg INH [id number] PRN PRN Reason: Shortness of Breath Naproxen (Anaprox Ds) 550 mg PO BID [facility] Last Admin: 07/02/18 17:16 Dose: 550 mg Pantoprazole Sodium (Protonix Ec Tab) 40 mg PO DAILY [facility] Last Admin: 07/02/18 13:26 Dose: 40 mg - Labs Labs: 07/03/18 06:05 07/03/18 06:05 PT 11.4 SECONDS (9.4-12.5) 07/02/18 01:15 INR 1.00 07/02/18 01:15 APTT 28.2 Seconds (25.1-36.5) 07/02/18 01:15 - Constitutional Appears: Non-toxic, No Acute Distress - Head Exam Head Exam: NORMAL INSPECTION, NORMOCEPHALIC - Eye Exam Eye Exam: Normal appearance Pupil Exam: NORMAL ACCOMODATION - ENT Exam ENT Exam: Mucous Membranes Moist, Normal Exam - Respiratory Exam Respiratory Exam: Clear to Ausculation Bilateral, NORMAL BREATHING PATTERN - Cardiovascular Exam Cardiovascular Exam: +S1, +S2 - GI/Abdominal Exam GI & Abdominal Exam: Soft, Normal Bowel Sounds - Extremities Exam Extremities Exam: Full ROM, Normal Capillary Refill - Neurological Exam Neurological Exam: Alert, Awake, Oriented x3 - Psychiatric Exam Psychiatric exam: Normal Affect, Normal Mood - Skin Skin Exam: Dry, Normal Color, Warm Assessment and Plan - Assessment and Plan (Free Text) Assessment: A 47 year old female who came in to the ER due to syncopal episode at home. History of lower extremity paralysis of unclear etiology.She claimed that she was checked for dizziness in the past. History of asthma. Head CT negative for acute intracranial process/bleeding. EKG, NSR. Chest X ray-no active pulmonary disease.Rule out orthostatic hypotension. Echo d one pending results. Carotid ultrasound results unremarkable. Plan: Echo done-will follow up results Negative for orthostatic hypotension Lying BP 125/84 Sitting BP 129/88 standing BP 126/92 Heart rate stable Blood pressure stable Continue current treatment Continue current medications Will follow up Plan and treatment discussed with Dr. Spann
[2018-07-03] MEDS: Naproxen 550 mg Tab PO SCH (10:17)
[2018-07-03] MEDS: Pantoprazole 40 mg EC Tab PO SCH (10:18)
[2018-07-03] MEDS ORDERED: A C T ELECTRONICS XX ONE (10:54)
[2018-07-03 12:51] VITALS: BP 125/85; PULSE 70; RESP 21; TEMP 98.7
--- NOTE | 2018-07-03 19:51 | CARD ---
APPROVED REPORT Date of service: 07/03/2018 EXAM: Two-dimensional and M-mode echocardiogram with Doppler and color Doppler. INDICATION Syncope 2D DIMENSIONS Left Atrium (2D)3.2 (1.6-4.0cm)IVSd1.0 (0.7-1.1cm) LVDd4.1 (3.9-5.9cm)PWd1.1 (0.7-1.1cm) LVDs2.8 (2.5-4.0cm)FS (%) 30.6 % LVEF (%)58.7 (>50%) M-Mode DIMENSIONS Aortic Root2.00 (2.2-3.7cm)Aortic Cusp Exc.1.60 (1.5-2.0cm) Aortic Valve AoV Peak Fmukmhwe125.0cm/[place] Peak GR.8mmHg Mitral Valve MV E Lqkqxzoj968.0cm/sMV A Oayhhmds21.4cm/sE/A ratio1.2 TDI E/Lateral E'0.0E/Medial E'0.0 Tricuspid Valve TR Peak Nywezrzi142zg/sRAP [id number] Peak Gr.17mmHg [id number] LEFT VENTRICLE The left ventricle is normal size. The left ventricular function is normal. The left ventricular ejection fraction is within the normal range. LV Ej.Fr: 60% RIGHT VENTRICLE The right ventricle is normal size. The right ventricular systolic function is normal. ATRIA The left atrium size is normal. AORTIC VALVE The aortic valve is normal in structure. MITRAL VALVE The mitral valve is normal in structure. Mitral regurgitation is trace. TRICUSPID VALVE The tricuspid valve is normal in structure. There is mild tricuspid regurgitation. PERICARDIAL EFFUSION There is no pericardial effusion. <Conclusion> The left ventricle is normal size. The left ventricular function is normal. The left ventricular ejection fraction is within the normal range. LV Ej.Fr: 60% The right ventricle is normal size. The right ventricular systolic function is normal. The left atrium size is normal. The aortic valve is normal in structure. The mitral valve is normal in structure. Mitral regurgitation is trace. The tricuspid valve is normal in structure. There is mild tricuspid regurgitation. There is no pericardial effusion.
--- NOTE | 2018-07-03 20:01 | PN ---
DATE: 07/03/2018 LOCATION: Room 260, bed 2. The patient's detailed note has been already written by Lisa Montenegro. This is an additional note. SUBJECTIVE: The patient was admitted with syncopal episode while in the bathroom and the patient denies any chest pain, shortness of breath or palpitations. The patient also complained of pain in the right lower leg anteriorly with local tenderness. The patient is now feeling better. Denies any cardiac symptoms. The patient has been seen by Neurology. The patient has echocardiogram report, we will follow. The patient was told that for completion of cardiac workup and to rule out any arrhythmia associated with any exertion, we want to do a nuclear stress, but she has right leg pain, so as soon as the pain is relieved, she will do the stress test as an outpatient. In the meantime, venous Doppler on both legs is negative for any thrombophlebitis. CAT scan is also negative, so we will continue present therapy at this time, being followed by Neurology. Park Spann MD
--- NOTE | 2018-07-03 21:44 | CARD ---
APPROVED REPORT Date of service: 07/03/2018 EKG Measurement Heart [id number] <Conclusion> Sinus rhythm with marked sinus arrhythmia Otherwise normal ECG
== END 2018-07-03 15:57 | disposition home or self-care (01) ==
LOC: ED 00:21 → INTOOBSV 03:08 → ERH 03:08 → 2RNO 16:24
PROVIDERS: ADMIT Internal Medicine Nephrology; ATTEND Internal Medicine Nephrology
DX: R55 Syncope and collapse (principal); M25.571 Pain in right ankle and joints of right foot; G89.29 Other chronic pain; J45.909 Unspecified asthma, uncomplicated; D72.829 Elevated white blood cell count, unspecified
CPT/HCPCS: 36415; 70450; 71045; 73610; 80053; 80061; 82550; 83615; 83735; 84100; 84443; 84484; 85025; 85027; 85610; 85730; 93005; 93306; 93880; 93971; 97116; 97161; 99285; G0378; G8978; G8979; G8980